=== PATIENT | male | born 1975 | race Caucasian/White ===

== ENCOUNTER 2024-01-09 08:56 | Emergency (ER) | payer OTHER, SELFPAY ==
[2024-01-09 08:57] VITALS: BP 154/93; PULSE 87; RESP 18; TEMP 37.2; O2SAT 96; BMI 30.3
--- NOTE | 2024-01-09 09:19 | EDS_ITS ---
HPI History of Present Illness Chief Complaint: Hypertension Informant: patient and spouse/S.O. Narrative Narrative: 48-year-old male presenting to the emergency room out of concerns for hypertension. Patient states he is not treated for any known medical problems. He states his blood pressure has always been fine. Patient states over the past few days he has had a cough and some congestion. He notes that last evening/night his blood pressure was very elevated in the 180s over 130s range. His notes that he seemed to be holding left side of his chest with some discomfort and was complaining of a left sided headache. He states that recently he has gotten a burning sensation in the left side of his chest intermittently and began to take some olive oil. He does not discuss this with his doctor. 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 He has not had any chest discomfort with exertion. The patient currently denies any symptoms. PFSH PFSH Home Medications ?Medication ?Instructions ?Recorded ?Last Taken ?Type clonidine HCl 0.1 mg tablet 0.1 mg PO Q6H PRN hypertensive 01/09/24 Unknown Rx emergency 48 hours #10 tabs Allergy/AdvReac Type Severity Reaction Status Date / Time No Known Allergies Allergy Verified 01/09/24 08:58 Social History Smoking Status: Never smoker ROS ROS ED Constitutional Constitutional ED: Denies chills, fever(s) or weight loss Eyes Eyes: Denies change in vision or diplopia ENT ENT ED: Reports rhinorrhea; Denies ear pain or sore throat Cardiovascular Cardiovascular: Reports chest pain; Denies orthopnea, palpitations or racing heartbeat Respiratory/Chest Respiratory/Chest: Reports cough; Denies dyspnea or orthopnea Gastrointestinal Gastrointestinal: Denies abdominal pain, diarrhea, nausea or vomiting Genitourinary Genitourinary ED: Denies dysuria, hematuria or urinary frequency Musculoskeletal Musculoskeletal: Denies arthralgias or myalgias Integumentary Denies abscess or rash Neurologic Neurologic: Reports headache(s) and paresthesias; Denies weakness Psychiatric Psychiatric: Denies anxiety, depression, suicidal ideation or suicidal thoughts Endocrine Endocrinology: Denies polydipsia, polyphagia or polyuria Allergic/Immunologic Allergic/Immunologic ED: Denies mouth swelling, tongue swelling or urticaria EXAM Physical Exam Const Vital Signs: 10/06/24 08:57 01/09/24 10:57 Temperature 99 F Temperature Source Temporal Pulse Rate 87 75 Respiratory Rate 18 18 Blood Pressure 154/93 H 127/98 H Blood Pressure Mean 113 107 Pulse Ox 96 98 Oxygen Delivery Method Room Air Room Air Positive well nourished and well developed General Appearance ED: well developed HEENT Reports normocephalic, head/scalp atraumatic and moist mucous membranes Eyes PERRL and EOMs intact bilaterally Neck no lymphadenopathy, supple and no JVD Resp normal respiratory effort and clear to auscultation bilaterally Cardio regular rate, regular rhythm and no murmurs GI normal to inspection, nondistended, normoactive bowel sounds and non-tender Palpation: soft Back/Spine no CVA tenderness and normal ROM Extremity normal to inspection General Extremety ED: Negative for edema General Extremity: Negative for edema Neuro oriented x3 and CN's II-XII intact bilaterally Sensorium / Orientation: alert Motor Exam: strength 5/5 throughout Psych mental status grossly normal Mood & Affect: Negative for depressed or tearful Skin no rashes or lesions noted and no wounds MDM MDM MDM Narrative Medical decision making narrative: Differential diagnosis includes but not limited to accelerated hypertension pneumonia bronchitis coronary artery disease acute coronary syndrome renal dysfunction EKG is a normal sinus rhythm with a ventricular rate of 79 bpm. My independent interpretation in the single view chest x-ray is normal mediastinal silhouette. Observing the patient on the registered nurse cardiac he is remaining in normal sinus rhythm. Blood pressures have been in the 130-140 systolic/90-100 diastolic range. Patient will monitor and record his blood pressures over the next 1 to 2 weeks. I did recommend that he follow-up with his doctor regarding these measurements to see if he should be started on a daily antihypertensive. He may also benefit from cardiac stress testing if indicated. In speaking with the patient his . I can write for some as needed clonidine should he experience significant hypertension he would like to try that rather than coming immediately back to the hospital. He would like to also see his inspector balance truing to talk about alternative treatments and would like a copy of his labs. History & Record Review Discussion w/independent historian: Patient and Significant other Lab Data Attestation: I reviewed the patient's lab results. Labs: Laboratory Results - last 24 hr 01/09/24 01/09/24 09:37 10:27 WBC 5.6 RBC 4.84 Hgb 14.7 Hct 41.7 MCV 86.2 MCH 30.4 MCHC 35.3 RDW Std Deviation 38.7 RDW Coeff of Shane 12.3 Plt Count 244 MPV 9.2 Immature Gran % (Auto) 0.200 Neut % (Auto) 52.7 Lymph % (Auto) 29.2 [place] % (Auto) 10.2 H Eos % (Auto) 7.2 H Baso % (Auto) 0.5 Absolute Neuts (auto) 3.0 Absolute Lymphs (auto) 1.63 Nucleated RBC % 0 Sodium 139 Potassium 3.6 Chloride 109 H Carbon Dioxide 25.0 Anion Gap 5 BUN 12 Creatinine 1.13 Estim Creat Clear Calc 85.40 Est GFR (MDRD) Af Amer 88 Est GFR (MDRD) Non-Af 73 BUN/Creatinine Ratio 10.6 Glucose 116 H Calcium 8.4 L Troponin I High Sens 5 Urine Color Yellow Urine Clarity Clear Urine pH 6.5 Ur Specific Conception 1.010 Urine Protein Negative Urine Glucose (UA) Normal Urine Ketones Negative Urine Occult Blood Negative Urine Nitrite Negative Urine Bilirubin Negative Urine Urobilinogen Normal Ur Leukocyte Esterase Negative EKG Initial EKG: Attestation: I personally reviewed and interpreted this EKG as follows: Comments: Normal sinus rhythm ventricular rate [address] segments are noted Discharge Plan Triage Chief Complaint: Hypertension ED Provider: Ariel Henry Dx/Rx/DC Orders Clinical Impression: Hypertension, Chest pain Instructions: ED Hypertension, To Be Confirmed Prescriptions: New clonidine HCl 0.1 mg tablet 0.1 mg PO Q6H PRN (Reason: hypertensive emergency) 2 Days Qty: 10 0RF Primary Care Provider: Kiana Valenzuela Referrals: Kiana Valenzuela PA-C [Primary Care Provider] - 1-2 Weeks Print Language: Sami Disposition Disposition: Home, Self Care
--- NOTE | 2024-01-09 09:19 | EKG12_ITS ---
Test Reason : CP/HTN Blood Pressure : / mmHG Vent. Rate : 079 BPM Atrial Rate : 079 BPM P-R Int : 180 ms QRS Dur : 090 ms QT Int : 368 ms P-R-T Axes : 026 015 034 degrees QTc Int : 421 ms Normal sinus rhythm Normal ECG Confirmed by KOLBY MIRANDA, SHARON ([id number]), purchase request editor MANOLO MCRAE ([id number]) on 01/11/2024 10:21:26 AM Referred By: Confirmed By:SHARON JARRETT MD
--- NOTE | 2024-01-09 09:19 | RAD_ITS ---
EXAM: XR CHEST, 1 VIEW CLINICAL INDICATION: Chest pain. TECHNIQUE: Frontal view of the chest. COMPARISON: No relevant prior studies available. FINDINGS: LUNGS AND PLEURAL SPACES: Calcified granuloma in the right lower medial lung zone. No consolidation or edema. No pleural effusion. No pneumothorax. HEART: Unremarkable. Cardiac silhouette not enlarged. MEDIASTINUM: Central airways and mediastinal contour are unremarkable. BONES/JOINTS: Unremarkable. No acute fracture. SOFT TISSUES: See above. LYMPH NODES: Calcified nodes in the right hilum. RAD/Chest 1 View (Portable) IMPRESSION: 1. No acute findings in the chest. 2. Calcified nodes in the right hilum and calcified granuloma in the right lower medial lung zone from prior granulomatous exposure. Electronically Signed: Tu Do MD at 9:52 EDT ,
--- NOTE | 2024-01-09 09:22 | NURSING ---
NO OLD EKGS
[2024-01-09] MEDS: Aspirin 81 MG TAB.CHEW 324 MG PO (09:38)
[2024-01-09 09:55] LABS: Absolute Lymphocyte Count 1.63 X10^3/uL (0.83-4.51); Basophil# 0.03 X10^3/uL; Basophil% 0.5 % (0-1); Eosinophils% 7.2 % (0-5); Hematocrit 41.7 % (40-54); Hemoglobin 14.7 g/dL (13.0-16.5); Lymphocyte # 1.63 X10^3/ul (0.83-4.51); Lymphocyte % 29.2 % (19-41); Mean Corp Hgb Conc 35.3 g/dL (32-36); Mean Corpuscular Hgb 30.4 pg (27.0-32.0); Mean Corpuscular Volume 86.2 fL (80-94); Mean Platelet Vol. 9.2 fl (6.2-12.0); Monocyte# 0.57 X10^3/uL; Monocyte% 10.2 % (0-10); NRBC Flagged by Analyzer 0 % (0-5); Neutrophil # 2.95 X10^3/uL (2.7-7.7); Neutrophil % 52.7 % (47-70); Platelet Count 244 K/mm3 (150-450); RBC Distribution Width CV 12.3 % (11.6-14.6); RBC Distribution Width SD 38.7 fl (35.1-43.9); Red Blood Count 4.84 M/mm3 (4.6-6.2); White Blood Count 5.6 K/mm3 (4.4-11.0)
[2024-01-09 10:13] LABS: Anion Gap 5 (5-15); BUN 12 mg/dL (7-18); BUN/Creat Ratio 10.6 RATIO (10-20); Calcium,Total 8.4 mg/dL (8.5-10.1); Chloride 109 mmol/L (98-107); Creatinine, Serum 1.13 mg/dL (0.70-1.30); EST Glomerular Filtration Rate 73 mL/min (>60); Est Glom Filt Rate - Afr Amer 88 mL/min (>60); Glucose 116 mg/dL (74-106); Potassium 3.6 mmol/L (3.5-5.1); Sodium Level 139 mmol/L (136-145); Troponin-I HS (w/2H Reflex) 5 pg/mL (3.0-78.0)
[2024-01-09 10:32] LABS: Bacteria 0 SEEN /hpf (None Seen); Mucous, Urine 0 SEEN /hpf (<or=2+); Red Blood Cells-Urine 0 SEEN /hpf (0-5); Squamous Epithelial Cells - UA 0 SEEN /hpf (0-5); White Blood Cells 0 SEEN /hpf (0-5)
[2024-01-09 10:34] LABS: Color, Urine Yellow (Yellow); Glucose, Dipstick Normal (Normal); Ketone-Dipstick Negative (Negative); Leukocyte Esterase-Dipstick Negative /ul (Negative); Nitrite-Dipstick Negative (Negative); Occult Blood-Urine Negative /ul (Negative); Protein-Dipstick Negative (Negative); Urine Bilirubin Dipstick Negative (Negative); Urine Clarity Clear (Clear); Urine Urobilinogen Normal (Normal); Urine pH 6.5 (5.0 - 8.0)
[2024-01-09 10:57] VITALS: BP 127/98; PULSE 75; RESP 18; O2SAT 98
[2024-01-09 11:37] VITALS: BP 135/99; PULSE 75; RESP 13
[2024-01-09 11:42] LABS: Reflex Troponin-HS? (from REC) Y
== END 2024-01-09 11:59 | disposition home or self-care (01) ==
PROVIDERS: Emergency Provider Emergency Medicine; PCP Family Medicine; Visit Provider Emergency Medicine
DX: I10 Essential (primary) hypertension (principal); R07.9 Chest pain, unspecified
CPT/HCPCS: 71045; 80048; 81001; 84484; 85025; 93005; 99283